=== PATIENT | female | born 1945 | race Caucasian/White ===

== ENCOUNTER → 2020-07-11 | Outpatient (CLI) | payer MEDICARE, OTHER ==
[~2020-07-11] MED LIST: TYLENOL 500 MG500 MG PO
== END ==
LOC: HEART CORB 12:45
DX: R00.2 Palpitations (principal)

== ENCOUNTER → 2020-07-18 | Outpatient (CLI) | payer MEDICARE, OTHER | LOC: HEART CORB 09:26 | DX: I10 Essential (primary) hypertension (principal); R00.2 Palpitations; I35.1 Nonrheumatic aortic (valve) insufficiency; I34.0 Nonrheumatic mitral (valve) insufficiency; I07.1 Rheumatic tricuspid insufficiency | CPT/HCPCS: 93306 ==